=== PATIENT | female | born 1995 ===

== ENCOUNTER 2025-06-30 12:12 | Outpatient (CLI) | payer OTHER | END 2025-06-30 12:15 | disposition home or self-care (01) | LOC: PRENATAL 12:12 | PROVIDERS: ATTEND Obstetrics & Gynecology Maternal & Fetal Medicine | DX: O26.849 Uterine size-date discrepancy, unspecified trimester (principal); O28.5 Abnormal chromosomal and genetic finding on antenatal screening of mother; Z3A.17 17 weeks gestation of pregnancy ==

== ENCOUNTER 2025-06-30 12:56 | Outpatient (CLI) | payer OTHER | END 2025-06-30 12:58 | disposition home or self-care (01) | LOC: LAB 12:56 | PROVIDERS: ATTEND Obstetrics & Gynecology Maternal & Fetal Medicine | DX: O28.5 Abnormal chromosomal and genetic finding on antenatal screening of mother (principal); O28.3 Abnormal ultrasonic finding on antenatal screening of mother ==

== ENCOUNTER 2025-09-13 07:32 | Outpatient (CLI) | payer OTHER | END 2025-09-13 07:33 | disposition home or self-care (01) | LOC: PRENATAL 07:32 | PROVIDERS: ATTEND Obstetrics & Gynecology Maternal & Fetal Medicine | DX: O26.843 Uterine size-date discrepancy, third trimester (principal); O28.5 Abnormal chromosomal and genetic finding on antenatal screening of mother; Z3A.28 28 weeks gestation of pregnancy ==